=== PATIENT | male | born 2005 | race African-American/Black ===

== ENCOUNTER 2025-05-14 08:07 | Emergency (ER) | payer OTHER ==
[~2025-05-14] VITALS: Ht 190.5 cm; Wt 79.1 kg
[2025-05-14] MEDS: NS (Normal Saline) 0.9% 1,000 ML IV ONE (09:12)
[2025-05-14 09:21] LABS: BASO # 0.0 10^3/uL (0.0-0.2); BASO % 0.4 % (0.0-1.0); EOS # 0.2 10^3/uL (0.0-0.5); EOS % 1.7 % (0.0-3.0); LYMPH # 1.6 10^3/uL (1.5-5.0); LYMPH % 15.4 % (24.0-44.0); MONO # 0.8 10^3/uL (0.0-0.8); MONO % 7.6 % (2.0-8.0); NEUTROPHILS # 7.5 10^3/uL (1.5-8.5); NEUTROPHILS % 74.4 % (36.0-66.0); PLATELET COUNT, AUTOMATED 216 10^3/uL (150-450)
[2025-05-14 09:48] LABS: CALCIUM LEVEL 9.8 MG/DL (8.5-10.1); CARBON DIOXIDE LEVEL 25 MMOL/L (20-31); CHLORIDE LEVEL 106 MMOL/L (98-107); CK-MB VALUE MASS 2.0 NG/ML (<3.6); CREATININE FOR GFR 1.14 MG/DL (0.70-1.30); GLOMERULAR FILTRATION RATE > 90.0 (>60); MAGNESIUM LEVEL 1.9 MG/DL (1.8-2.4); POTASSIUM SERUM 4.3 MMOL/L (3.5-5.1); SODIUM LEVEL 144 MMOL/L (136-145)
[2025-05-14 09:58] LABS: CPK CREATINE PHOSPHOKINASE 198 U/L (46-171); MB/CK RELATIVE INDEX 1.01 (< OR =4)
[2025-05-14 10:32] VITALS: BP 113/66; TEMP 96; O2SAT 100
== END 2025-05-14 10:40 | disposition home or self-care (01) ==
LOC: M ED 08:07 → EDBD 08:07 → M ED 10:40
DX: R55 Syncope and collapse (principal)